=== PATIENT | female | born 1940 | race Caucasian/White ===

== ENCOUNTER → 2023-10-30 07:29 | Outpatient (REF) | payer MEDICARE, BC, SELFPAY | LOC: EMG 07:29 | PROVIDERS: ATTENDING PHYSICIAN Psychiatry & Neurology Neurology | DX: G62.9 Polyneuropathy, unspecified (principal); G56.02 Carpal tunnel syndrome, left upper limb; M54.12 Radiculopathy, cervical region | CPT/HCPCS: 95886; 95909 ==

== ENCOUNTER 2023-11-06 12:15 | Emergency (ER) | payer MEDICARE, BC, SELFPAY ==
[2023-11-06 12:26] VITALS: BP 132/85
[2023-11-06 12:48] LABS: % Basophils 0.6 % (0-2); % Eosinophils 0.2 % (0-6); % Immature Granulocytes 0.4 % (0-0.5); % Lymphocytes 8.5 % (20.5-51.1); % Monocytes 11.9 % (1.7-9.3); % Neutrophils 78.4 % (42.2-75.2); Absolute Basophils 0.1 10^3/uL (0-0.2); Absolute Lymphocytes 0.7 10^3/uL (1.2-3.4); Absolute Neutrophils 6.5 10^3/uL (1.4-6.5); Hematocrit 38.1 % (37.0-47.0); Hemoglobin 13.7 g/dL (12.0-16.0); Mean Corpuscular Hgb 32.6 pg (27.0-31.0); Mean Corpuscular Volume 90.7 fL (81.0-99.0); Nucleated Red Blood Cells % 0 %; Platelet Count 189 10^3/uL (130-400); Red Cell Dist. Width 13.4 % (11.5-14.5); White Blood Cell Count 8.2 10^3/uL (4.8-10.8)
[2023-11-06 13:26] LABS: ALT (SGPT) 25 U/L (0-35); AST (SGOT) 38 U/L (14-36); Albumin 4.3 g/dl (3.5-5.0); Alkaline Phosphatase 52 U/L (38-126); Blood Urea Nitrogen 31 mg/dl (7-17); Calcium 9.3 mg/dl (8.4-10.2); Carbon Dioxide 27 mmol/L (22-30); Chloride 102 mmol/L (98-107); Glucose 117 mg/dl (70-99); Potassium 4.4 mmol/L (3.5-5.1); Sodium 133 mmol/L (135-145); Total Bilirubin 0.9 mg/dl (0.2-1.3); Total Protein 6.9 g/dl (6.3-8.2); eGFR > 60.00
--- NOTE | 2023-11-06 15:36 | ED.GENMED ---
History of Present Illness
General
Chief Complaint: Fatigue
Source: patient
Exam Limitations: none
Time Seen by Provider: 11/06/23 15:15
Travel History
Have you had any contact with someone who has COVID-19?: No
Do you have any symptoms of coronavirus? Fever > 100 degrees, chills, cough, shortness of breath, sore throat, loss of taste or smell, muscle aches, or headache?: Yes
Symptoms:: bodyaches
History of Present Illness
History of Present Illness:
83 year old female presents with generalized weakness and fatigue starting yesterday. She notes a slight cough. No fever. Lives at home by herself. Tested herself at home and was positive for COVID. She denies shortness of breath. No vomiting.
She noted a decreased appetite yesterday. No other complaints at this time
Past History
Past History
ED Past Medical History: HTN and Other (Chronic renal failure, compression fractures, parotid gland cancer, osteoporosis)
ED Past Surgical History: Bowel resection, Gynecological, Orthopedic, Tonsilectomy and Other
Social History
Tobacco: Non-smoker
Alcohol: None
Drug: None
Personal:
Living: alone
Employment: Not employed
Family History
Family History: Other
Phy Exam
Physical Exam
Physical Exam:
General: Well-appearing female no acute respiratory distress
HEENT: Normocephalic atraumatic
Heart: Regular rate and rhythm no murmurs
Lungs: Clear to auscultation bilaterally no wheezing
Abdomen is soft nontender nondistended no guarding or rebound normal bowel
Extremities: No cyanosis or edema
Skin: Warm without rashes
Course
Orders/Labs/Results
Orders:
Orders
11/06/23 12:42
Complete Blood Count/With Diff Urgent
Comprehensive Metabolic Panel Urgent
11/06/23 15:35
Acetaminophen [Tylenol] 650 mg PO NOW STA
Abnormal Lab Results
11/06/23
12:42
MCH 32.6 H pg
(27.0-31.0)
Absolute Lymphs (auto) 0.7 L 10^3/uL
(1.2-3.4)
Absolute Monos (auto) 1.0 H 10^3/uL
(0.1-0.6)
Neutrophils % 78.4 H %
(42.2-75.2)
Lymphocytes % 8.5 L %
(20.5-51.1)
Monocytes % 11.9 H %
(1.7-9.3)
Sodium 133 L mmol/L
(135-145)
BUN 31 H mg/dl
(7-17)
Glucose 117 H mg/dl
(70-99)
AST 38 H U/L
(14-36)
11/06/23 12:42
11/06/23 12:42
Vital Signs
Initial and Last Documented VS:
Initial Vital Signs
Temp Pulse Resp BP Pulse Ox
100.0 F 88 18 132/85 95
11/06/23 12:26 11/06/23 12:11/06/23 12:11/06/23 12:11/06/23 12:26
Last Documented Vital Signs
Temp Pulse Resp BP Pulse Ox
100.0 F 88 18 132/85 95
11/06/23 12:26 11/06/23 12:26 11/06/23 12:11/06/23 12:11/06/23 12:26
MDM/Problems Addressed
Differential Diagnosis Includes:
Fatigue and weakness. Patient tested positive for COVID at home today. She is not hypoxic no respiratory distress. Labs through triage were reviewed and are without significant finding. Temperature up from 100.0 will administer Tylenol.
*Critical Care Note
Total Time (30-74mins, 75-104mins- exclusive of procedures): Not Applicable
Update Note
Update Note:
Patient remains nontoxic no respiratory distress offered Tylenol but she declined. Will discharge patient home with COVID. Return precautions were given.
Upon discharge, patient was ambulating throughout the room by herself and lost balance and fell. States she hit the left side of her face. No loss conscious. She denies any pain. No neck pain. Patient was examined pupils are equal round
reactive to light no facial bone deformity cervical spine tenderness. No complaints from the fall. Stable for discharge
ED Attending Note
-
Portions of this chart may have been created with voice recognition software.� Occasional wrong word or��sound alike� substitutions may have occurred due to the inherent limitations of voice recognition software.
Discharge Plan
Departure
Patient Disposition: Home (Routine Discharge)
Date of Disposition: 11/06/23
Time of Disposition: 16:49
Patient with high blood pressure during this ER visit?: No
Discharge Problem:
COVID-19
Instructions: COVID-19 (DC)
Prescriptions:
No Action
cholecalciferol (vitamin D3) 1,000 UNITS tablet
5,000 units PO BID
Benefiber
1 dose PO TID
Arthro Max Advanced
1 tab PO DAILY
thiamine HCl (vitamin B1) 100 MG tablet
100 mg PO DAILY Qty: 0
docosahexaenoic acid-epa 1 CAP capsule
1 cap PO BID Qty: 0
High Absorption Cq10
200 mg PO DAILY
gabapentin 100 MG capsule
100 mg PO BID Qty: 60 0RF
polyethylene glycol 3350 17 GRAMS powder in packet
17 grams PO TID
flaxseed-omega3,6,9-fatty acid 1 EACH capsule
1 cap PO DAILY
estradiol 1 APPLIC cream
1 applic VAG .2X WEEKLY
cyclobenzaprine 10 MG tablet
5 mg PO TID 0RF
acetaminophen 325 MG tablet
650 mg PO Q4HPRN PRN (Reason: mild pain/LARIOS/temp> 100.4F) 0RF
lidocaine [Aspercreme (lidocaine)] 1 PATCH adhesive patch,medicated
1 patch topical DAILY 0RF
amlodipine 10 MG tablet
10 mg PO DAILY 0RF
docusate sodium 100 MG capsule
100 mg PO BID 0RF
lidocaine 5 % adhesive patch,medicated
1 patch topical DAILY Qty: 15 0RF
Referrals:
Amada Owen MD [Family Provider] -
Activity Restrictions/Additional Instructions:
Stay hydrated. Use Tylenol if needed for fever or aches. Return for worsening symptoms otherwise follow-up with family
Interventions
Interventions:
*ED COVID-19 Vaccine History Last Done: 11/06/23 12:26
[2023-11-06 17:15] VITALS: BP 116/82
== END 2023-11-06 18:31 | disposition home or self-care (01) ==
LOC: EMR 12:15
PROVIDERS: Emergency Medicine; EMERGENCY PHYSICIAN Emergency Medicine; FAMILY PHYSICIAN Student in an Organized Health Care Education/Training Program
DX: U07.1 COVID-19 (principal); I12.9 Hypertensive chronic kidney disease with stage 1 through stage 4 chronic kidney disease, or unspecified chronic kidney disease; N18.9 Chronic kidney disease, unspecified; Z60.2 Problems related to living alone; Z85.818 Personal history of malignant neoplasm of other sites of lip, oral cavity, and pharynx; M81.0 Age-related osteoporosis without current pathological fracture
CPT/HCPCS: 99283; 80053; 85025

== ENCOUNTER → 2023-11-18 13:24 | Outpatient (REF) | payer MEDICARE, BC, SELFPAY | LOC: RAD 13:24 | PROVIDERS: ATTENDING PHYSICIAN Student in an Organized Health Care Education/Training Program | DX: M54.6 Pain in thoracic spine (principal) | CPT/HCPCS: 72072 ==

== ENCOUNTER 2024-02-06 15:46 | Emergency (ER) | payer MEDICARE, BC, SELFPAY ==
[2024-02-06 15:49] VITALS: BP 163/84
--- NOTE | 2024-02-06 16:50 | ED.GENMED ---
History of Present Illness
General
Chief Complaint: Throat Problem
Source: patient
Time Seen by Provider: 02/06/24 16:16
Travel History
Have you had any contact with someone who has COVID-19?: No
Do you have any symptoms of coronavirus? Fever > 100 degrees, chills, cough, shortness of breath, sore throat, loss of taste or smell, muscle aches, or headache?: No
History of Present Illness
History of Present Illness:
83-year-old female presents to the emergency room complaining of head injury. Patient states that she was rushing to get to a appointment this morning with her ears nose and throat specialist at the hospital of the [facility]. She
fell backwards and struck the back of her head. She had some bleeding but no loss of consciousness. She continued to rushing get ready for her appointment and did see her doctor at [place]. The reason for her visit there was that she felt a lump on
the left side of her neck up by her jaw. 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 Her surgeon told her he has a low suspicion for recurrence but recommended she get a CT of her neck to be sure. Pt has also been having some
pain with swallowing on the left.
Past History
Past History
ED Past Medical History: HTN and Other (Chronic renal failure, compression fractures, parotid gland cancer, osteoporosis)
ED Past Surgical History: Bowel resection, Gynecological, Orthopedic, Tonsilectomy and Other
Social History
Tobacco: Non-smoker
Alcohol: None
Drug: None
Personal:
Living: alone
Employment: Not employed
Family History
Family History: Other
Phy Exam
Physical Exam
Physical Exam:
General: Awake, Alert, Oriented X3. No acute distress.
Vitals: unremarkable
Head: Hematoma occipital region with a central area of abrasion or small laceration without significant gaping
Eyes: Pupils equal, EOMI
Throat: Airway intact, no exudates
Neck: Trachea midline, mild tenderness diffusely. No lymphadenopathy noted. Patient indicates an area where she is concerned about a lump. Palpating this area reveals what appears to be a bony prominence but no clear discrete mass
Lungs: Clear and equal b/l
Heart: Regular rate, no murmurs
Abd: Soft, Nontender, No pulsatile mass
Neuro: Nonfocal
Skin: Warm, dry, no rash
Extremities: pulses equal b/l, no edema
Course
Orders/Labs/Results
Orders:
Orders
02/06/24 16:50
CT Head W/o Iv Contrast Urgent
Comment:
Reason For Exam: fall, head injury
CT Neck With Iv Contrast Urgent
Comment:
Reason For Exam: fall, nck pain, lump lt angle mandible, hx salv ca
02/06/24 17:00
Basic Metabolic Panel Urgent
Complete Blood Count/With Diff Urgent
Abnormal Lab Results
02/06/24
17:00
RBC 4.02 L 10^6/uL
(4.20-5.40)
MCH 33.1 H pg
(27.0-31.0)
Abs Immat Gran (auto) 0.1 H 10^3/uL
(0-0.05)
Absolute Lymphs (auto) 1.1 L 10^3/uL
(1.2-3.4)
Absolute Monos (auto) 0.7 H 10^3/uL
(0.1-0.6)
Immature Gran % 0.6 H %
(0-0.5)
Neutrophils % 75.7 H %
(42.2-75.2)
Lymphocytes % 13.2 L %
(20.5-51.1)
BUN 31 H mg/dl
(7-17)
Glucose 112 H mg/dl
(70-99)
02/06/24 17:00
02/06/24 17:00
Vital Signs
Initial and Last Documented VS:
Initial Vital Signs
Temp Pulse Resp BP Pulse Ox
98.2 F 67 16 163/84 98
02/06/24 15:49 02/06/24 15:49 02/06/24 15:49 02/06/24 15:49 02/06/24 15:49
Last Documented Vital Signs
Temp Pulse Resp BP Pulse Ox
98.2 F 64 18 144/74 98
02/06/24 15:49 02/06/24 19:19 02/06/24 19:19 02/06/24 19:19 02/06/24 19:19
MDM/Problems Addressed
Differential Diagnosis Includes:
Subdural, subarachnoid, scalp contusion, cervical spine injury, tumor recurrence
MDM/Problems Addressed:
Imaging showed no acute traumatic injury nor any recurrence in the area of concern. She was noted to have calcification of the carotid bulb. Patient informed of this and instructed to follow-up with her primary care provider for this. Patient
stable for discharge home.
*Radiology
Radiology exam reviewed: radiology read reviewed
*Critical Care Note
Total Time (30-74mins, 75-104mins- exclusive of procedures): Not Applicable
Patient Management
Social determinants of health affecting care: Strong social support
ED Attending Note
-
Portions of this chart may have been created with voice recognition software.� Occasional wrong word or��sound alike� substitutions may have occurred due to the inherent limitations of voice recognition software.
Discharge Plan
Departure
Patient Disposition: Home (Routine Discharge)
Date of Disposition: 02/06/24
Time of Disposition: 18:37
Patient with high blood pressure during this ER visit?: Yes
Condition: Good
Discharge Problem:
Head injury, Cervical strain
Instructions: Head injury in adults, BLOOD PRESSURE
Prescriptions:
No Action
cholecalciferol (vitamin D3) 1,000 UNITS tablet
5,000 units PO BID
Benefiber
1 dose PO TID
Arthro Max Advanced
1 tab PO DAILY
thiamine HCl (vitamin B1) 100 MG tablet
100 mg PO DAILY Qty: 0
docosahexaenoic acid-epa 1 CAP capsule
1 cap PO BID Qty: 0
High Absorption Cq10
200 mg PO DAILY
gabapentin 100 MG capsule
100 mg PO BID Qty: 60 0RF
polyethylene glycol 3350 17 GRAMS powder in packet
17 grams PO TID
flaxseed-omega3,6,9-fatty acid 1 EACH capsule
1 cap PO DAILY
estradiol 1 APPLIC cream
1 applic VAG .2X WEEKLY
cyclobenzaprine 10 MG tablet
5 mg PO TID 0RF
acetaminophen 325 MG tablet
650 mg PO Q4HPRN PRN (Reason: mild pain/LARIOS/temp> 100.4F) 0RF
lidocaine [Aspercreme (lidocaine)] 1 PATCH adhesive patch,medicated
1 patch topical DAILY 0RF
amlodipine 10 MG tablet
10 mg PO DAILY 0RF
docusate sodium 100 MG capsule
100 mg PO BID 0RF
lidocaine 5 % adhesive patch,medicated
1 patch topical DAILY Qty: 15 0RF
Referrals:
UNKNOWN - PT DOES,NOT KNOW [Unknown Provider] -
Activity Restrictions/Additional Instructions:
Your CAT scan shows there is no significant injury to your head or neck. There is no evidence of abnormal lymph nodes or a mass. The area of concern is close to your carotid artery which does have some calcification. This is something your family
doctor can follow-up on.
Interventions
Interventions:
*Risk Screen - Suicide Last Done: 02/06/24 15:49
*General Assessment Last Done: 02/06/24 15:49
*Neglect/Abuse Screening Last Done: 02/06/24 15:49
ED- Fall Risk Assessment Last Done: 02/06/24 19:20
*ED COVID-19 Vaccine History Last Done: 02/06/24 19:20
*Nursing Disposition Last Done: 02/06/24 19:20
ED-EENT Assessment Last Done: 02/06/24 19:19
ED- Pulmonary Assessment Last Done: 02/06/24 19:19
Discharge Date and Time
Discharge Date/Time: 02/06/24 19:20
Print Language: SENEGALESE
[2024-02-06 17:10] LABS: % Basophils 0.5 % (0-2); % Eosinophils 2.1 % (0-6); % Immature Granulocytes 0.6 % (0-0.5); % Lymphocytes 13.2 % (20.5-51.1); % Monocytes 7.9 % (1.7-9.3); % Neutrophils 75.7 % (42.2-75.2); Absolute Eosinophils 0.2 10^3/uL (0-0.7); Absolute Immature Granulocytes 0.1 10^3/uL (0-0.05); Absolute Lymphocytes 1.1 10^3/uL (1.2-3.4); Absolute Monocytes 0.7 10^3/uL (0.1-0.6); Absolute Neutrophils 6.5 10^3/uL (1.4-6.5); Hematocrit 38.9 % (37.0-47.0); Hemoglobin 13.3 g/dL (12.0-16.0); Mean Corp Hgb Conc. 34.2 g/dL (33.0-37.0); Mean Corpuscular Hgb 33.1 pg (27.0-31.0); Mean Corpuscular Volume 96.8 fL (81.0-99.0); Mean Platelet Volume 9.1 fL (7.4-10.4); Nucleated Red Blood Cells % 0 %; Platelet Count 206 10^3/uL (130-400); Red Blood Cell Count 4.02 10^6/uL (4.20-5.40); Red Cell Dist. Width 13.7 % (11.5-14.5); White Blood Cell Count 8.6 10^3/uL (4.8-10.8)
[2024-02-06 17:32] LABS: Blood Urea Nitrogen 31 mg/dl (7-17); Calcium 10.1 mg/dl (8.4-10.2); Carbon Dioxide 27 mmol/L (22-30); Chloride 104 mmol/L (98-107); Glucose 112 mg/dl (70-99); Potassium 4.1 mmol/L (3.5-5.1); Sodium 138 mmol/L (135-145); eGFR 55.21
[2024-02-06 19:19] VITALS: BP 144/74
== END 2024-02-06 19:20 | disposition home or self-care (01) ==
LOC: EMR 15:46
PROVIDERS: EMERGENCY PHYSICIAN Emergency Medicine; FAMILY PHYSICIAN Student in an Organized Health Care Education/Training Program
DX: S09.90XA Unspecified injury of head, initial encounter (principal); S16.1XXA Strain of muscle, fascia and tendon at neck level, initial encounter; S00.03XA Contusion of scalp, initial encounter; S00.01XA Abrasion of scalp, initial encounter; R22.1 Localized swelling, mass and lump, neck; W19.XXXA Unspecified fall, initial encounter; I12.9 Hypertensive chronic kidney disease with stage 1 through stage 4 chronic kidney disease, or unspecified chronic kidney disease; N18.9 Chronic kidney disease, unspecified; M81.0 Age-related osteoporosis without current pathological fracture; Z85.818 Personal history of malignant neoplasm of other sites of lip, oral cavity, and pharynx
CPT/HCPCS: 99285; 70450; 70491; 80048; 85025; Q9967

== ENCOUNTER → 2024-02-28 09:52 | Outpatient (REF) | payer MEDICARE, BC, SELFPAY | LOC: WDC 09:52 | PROVIDERS: ATTENDING PHYSICIAN Physician Assistant Medical | DX: N63.20 Unspecified lump in the left breast, unspecified quadrant (principal); N63.21 Unspecified lump in the left breast, upper outer quadrant | CPT/HCPCS: 76642; 77062; 77066 ==

== ENCOUNTER 2024-06-07 11:16 | Emergency (ER) | payer MEDICARE, BC, SELFPAY ==
[2024-06-07 11:19] VITALS: BP 117/85; BMI 20.6
[2024-06-07 12:00] VITALS: BP 106/57
--- NOTE | 2024-06-07 12:10 | ED.GENMED ---
History of Present Illness
General
Chief Complaint: Musculo-Skeletal Complaint
Source: patient
Time Seen by Provider: 06/07/24 11:45
History of Present Illness
History of Present Illness:
84yoF with a history of hypertension, osteoporosis, and prior lumbar compression fractures presenting via EMS for evaluation of right lower back pain. Patient bent down to take her shoes off last night when she started to experience an extreme pain
in her right lower posterior ribcage. Pain felt like her vertebrae were 'crumbling.' Patient had a leftover CBD which she used today with some improvement. Patient is worried due to her history of osteoporosis. She believes that she may have
fractured something. She denies any weakness, paresthesias, or pain in the lower extremities. No fevers, shortness of breath, abdominal pain, incontinence, saddle anesthesia. She ambulates with a cane.
Past History
Past History
ED Past Medical History: HTN and Other (Chronic renal failure, compression fractures, parotid gland cancer, osteoporosis)
ED Past Surgical History: Bowel resection, Gynecological, Orthopedic, Tonsilectomy and Other
Social History
Tobacco: Non-smoker
Alcohol: None
Drug: None
Personal:
Living: alone
Employment: Not employed
Family History
Family History: Other
Phy Exam
General Physical Exam
General Presentation: well appearing and no apparent distress
General age: appears stated age
General Skin: warm and dry
General Habitus: normal and elderly
General Mental: alert
ENT Exam
ENT Exam: normocephalic
Pulmonary Exam
Pulmonary Exam: lungs clear, no respiratory distress, no crackles and no wheezing
Gastrointestinal Exam
Gastrointestinal Exam: non tender, soft and non distended
[place] Coma Scale
Eye Opening: Spontaneous
Verbal Response: Oriented
Motor Response: Obeys Commands
GCS Total Score: 15
Musculoskeletal Exam
Musculoskeletal Exam: other (+Tenderness along lower R posterior ribcage. No crepitus or skin changes. No midline lumbar spine tenderness. )
Skin Exam
Skin Exam: normal color and warm/dry
Psychiatric Exam
Psychiatric Exam: normal mood/affect
Course
Orders/Labs/Results
Orders:
Orders
06/07/24 12:07
CT Chest W/o Iv Contrast Urgent
Comment:
Reason For Exam: R posterior lower rib pain
CT Lumbar Spine W/o Iv Contras Urgent
Comment:
Reason For Exam: Back pain
Acetaminophen [Tylenol] 1,000 mg PO NOW STA
06/07/24 12:15
Lidocaine [Lidocaine 4% Patch] 1 patch TOPICAL DAILY
Apply Lidocaine patch(s) to:: R lower ribcage
Vital Signs
Initial and Last Documented VS:
Initial Vital Signs
Temp Pulse Resp BP Pulse Ox
98.7 F 69 14 117/85 98
06/07/24 11:19 06/07/24 11:19 06/07/24 11:19 06/07/24 11:19 06/07/24 11:19
Last Documented Vital Signs
Temp Pulse Resp BP Pulse Ox
98.7 F 83 14 117/68 99
06/07/24 11:19 06/07/24 17:11 06/07/24 17:11 06/07/24 13:10 06/07/24 17:11
MDM/Problems Addressed
Differential Diagnosis Includes:
84yoF here with R lower rib/back pain after taking off her shoes. No true fall. Hx of osteoporosis and compression fractures. No red flags in history including no saddle anesthesia, incontinence, fevers. VSS. She is non-toxic appearing. There is
tenderness along the R posterior ribcage on exam. Bilateral breath sounds intact. Differential diagnosis includes but is not limited to: fracture, strain, rib contusion
Initial ED plan: Will check CT chest and lumbar spine. Tylenol and lidocaine patch for pain.
*Critical Care Note
Total Time (30-74mins, 75-104mins- exclusive of procedures): Not Applicable
Update Note
Update Note:
Imaging negative for fractures. Lumbar spine CT is stable from 2022. Patient is sleeping on reassessment. No indication for admission. Supportive care discussed. Advised f/u with PCP. ED return precautions discussed. She is stable for discharge back
to her independent living facility.
ED Attending Note
-
Portions of this chart may have been created with voice recognition software.� Occasional wrong word or��sound alike� substitutions may have occurred due to the inherent limitations of voice recognition software.
Discharge Plan
Departure
Patient Disposition: Home (Routine Discharge)
Date of Disposition: 06/07/24
Time of Disposition: 14:07
Patient with high blood pressure during this ER visit?: No
Discharge Problem:
Acute right-sided low back pain
Instructions: Muscle and Bone Pain (DC)
Prescriptions:
No Action
cholecalciferol (vitamin D3) 1,000 UNITS tablet
5,000 units PO BID
Benefiber
1 dose PO TID
Arthro Max Advanced
1 tab PO DAILY
thiamine HCl (vitamin B1) 100 MG tablet
100 mg PO DAILY Qty: 0
docosahexaenoic acid-epa 1 CAP capsule
1 cap PO BID Qty: 0
High Absorption Cq10
200 mg PO DAILY
gabapentin 100 MG capsule
100 mg PO BID Qty: 60 0RF
polyethylene glycol 3350 17 GRAMS powder in packet
17 grams PO TID
flaxseed-omega3,6,9-fatty acid 1 EACH capsule
1 cap PO DAILY
estradiol 1 APPLIC cream
1 applic VAG .2X WEEKLY
cyclobenzaprine 10 MG tablet
5 mg PO TID 0RF
acetaminophen 325 MG tablet
650 mg PO Q4HPRN PRN (Reason: mild pain/LARIOS/temp> 100.4F) 0RF
lidocaine [Aspercreme (lidocaine)] 1 PATCH adhesive patch,medicated
1 patch topical DAILY 0RF
amlodipine 10 MG tablet
10 mg PO DAILY 0RF
docusate sodium 100 MG capsule
100 mg PO BID 0RF
lidocaine 5 % adhesive patch,medicated
1 patch topical DAILY Qty: 15 0RF
Referrals:
Amada Owen MD [Family Provider] -
Activity Restrictions/Additional Instructions:
Apply heat to affected area. Take Tylenol 650mg every 6 hours as needed for pain.
Please follow-up with your family doctor. Return to the ER with any new or worsening symptoms.
Interventions
Interventions:
*Risk Screen - Suicide Last Done: 06/07/24 11:19
*General Assessment Last Done: 06/07/24 11:19
*Neglect/Abuse Screening Last Done: 06/07/24 11:19
*ED COVID-19 Vaccine History Last Done: 06/07/24 11:19
ED-Musculoskeletal Assessment Last Done: 06/07/24 11:34
Discharge Date and Time
Discharge Date/Time: 06/07/24 17:23
Print Language: L[place]
[2024-06-07] MEDS: TYLENOL 1000 MG PO (12:43)
[2024-06-07] MEDS: LIDOCAINE 4% PATCH 1 PATCH TOPICAL (12:43)
[2024-06-07 13:10] VITALS: BP 117/68
== END 2024-06-07 17:23 | disposition home or self-care (01) ==
LOC: EMR 11:16
PROVIDERS: EMERGENCY PHYSICIAN Emergency Medicine; FAMILY PHYSICIAN Student in an Organized Health Care Education/Training Program
DX: M54.50 Low back pain, unspecified (principal); R07.89 Other chest pain; M81.0 Age-related osteoporosis without current pathological fracture; M48.56XA Collapsed vertebra, not elsewhere classified, lumbar region, initial encounter for fracture; I12.9 Hypertensive chronic kidney disease with stage 1 through stage 4 chronic kidney disease, or unspecified chronic kidney disease; N18.9 Chronic kidney disease, unspecified; Z85.818 Personal history of malignant neoplasm of other sites of lip, oral cavity, and pharynx; Z98.0 Intestinal bypass and anastomosis status; Z88.1 Allergy status to other antibiotic agents; Z88.2 Allergy status to sulfonamides; Z88.8 Allergy status to other drugs, medicaments and biological substances; Z91.048 Other nonmedicinal substance allergy status
CPT/HCPCS: 99284; 71250; 72131

== ENCOUNTER → 2024-07-09 10:39 | Outpatient (REF) | payer MEDICARE, BC, SELFPAY | LOC: HWRAD 10:39 | PROVIDERS: ATTENDING PHYSICIAN Internal Medicine Endocrinology, Diabetes & Metabolism; FAMILY PHYSICIAN Student in an Organized Health Care Education/Training Program; REFERRING PHYSICIAN Internal Medicine | DX: M81.0 Age-related osteoporosis without current pathological fracture (principal) | CPT/HCPCS: 77080 ==

== ENCOUNTER → 2024-09-28 09:28 | Outpatient (REF) | payer MEDICARE, BC, SELFPAY | LOC: HWRCS 09:28 | PROVIDERS: ATTENDING PHYSICIAN Internal Medicine; FAMILY PHYSICIAN Student in an Organized Health Care Education/Training Program | DX: I48.91 Unspecified atrial fibrillation (principal) | CPT/HCPCS: 93306 ==

== ENCOUNTER → 2024-11-06 09:15 | Outpatient (REF) | payer MEDICARE, BC, SELFPAY | LOC: DHSLP 09:15 | PROVIDERS: ATTENDING PHYSICIAN Internal Medicine Critical Care Medicine; FAMILY PHYSICIAN Student in an Organized Health Care Education/Training Program | DX: G47.33 Obstructive sleep apnea (adult) (pediatric) (principal) | CPT/HCPCS: 95811 ==

== ENCOUNTER 2024-12-04 15:35 | Emergency (ER) | payer MEDICARE, BC, SELFPAY ==
[2024-12-04 15:40] VITALS: BP 102/59
[2024-12-04 16:07] LABS: % Basophils 0.6 % (0-2); % Immature Granulocytes 0.4 % (0-0.5); % Lymphocytes 11.2 % (20.5-51.1); % Monocytes 8.5 % (1.7-9.3); % Neutrophils 75.3 % (42.2-75.2); Absolute Basophils 0.1 10^3/uL (0-0.2); Absolute Eosinophils 0.4 10^3/uL (0-0.7); Absolute Lymphocytes 1.2 10^3/uL (1.2-3.4); Absolute Monocytes 0.9 10^3/uL (0.1-0.6); Absolute Neutrophils 8.1 10^3/uL (1.4-6.5); Hematocrit 36.4 % (37.0-47.0); Hemoglobin 12.8 g/dL (12.0-16.0); Mean Corp Hgb Conc. 35.2 g/dL (33.0-37.0); Mean Corpuscular Hgb 31.8 pg (27.0-31.0); Mean Corpuscular Volume 90.5 fL (81.0-99.0); Mean Platelet Volume 8.6 fL (7.4-10.4); Nucleated Red Blood Cells % 0 %; Platelet Count 253 10^3/uL (130-400); Red Blood Cell Count 4.02 10^6/uL (4.20-5.40); White Blood Cell Count 10.7 10^3/uL (4.8-10.8)
[2024-12-04 16:25] LABS: ALT (SGPT) 23 U/L (0-35); AST (SGOT) 25 U/L (14-36); Albumin 4.3 g/dl (3.5-5.0); Alkaline Phosphatase 52 U/L (38-126); Blood Urea Nitrogen 37 mg/dl (7-17); Calcium 10.2 mg/dl (8.4-10.2); Carbon Dioxide 29 mmol/L (22-30); Chloride 95 mmol/L (98-107); Glucose 129 mg/dl (70-99); Potassium 4.5 mmol/L (3.5-5.1); Sodium 131 mmol/L (135-145); Total Bilirubin 0.5 mg/dl (0.2-1.3); Total Protein 6.5 g/dl (6.3-8.2); eGFR 54.87
[2024-12-04 18:16] VITALS: BP 114/103
[2024-12-04 18:23] VITALS: BP 114/103
--- NOTE | 2024-12-04 18:48 | ED.GENMED ---
History of Present Illness
General
Chief Complaint: Fall
Source: patient
Time Seen by Provider: 12/04/24 18:31
History of Present Illness
History of Present Illness:
84-year-old female presents to the emergency room for evaluation after having some difficulty ambulating today. Patient was walking with her rollator outside and was observed having difficulty walking. She was told to look at her right leg was
taking smaller steps than her left. She had 1 fall without injury. Patient was helped up after the fall back to her independent living apartment. She was able to ambulate normally at that time. Patient notes she has been having labile blood
pressures over the past several weeks. She denies headache, chest pain, shortness of breath or abdominal pain.
Past History
Past History
ED Past Medical History: HTN and Other (Chronic renal failure, compression fractures, parotid gland cancer, osteoporosis)
ED Past Surgical History: Bowel resection, Gynecological, Orthopedic, Tonsilectomy and Other
Social History
Tobacco: Non-smoker
Alcohol: None
Drug: None
Personal:
Living: alone
Employment: Not employed
Family History
Family History: Other
Phy Exam
Physical Exam
Physical Exam:
General: Awake, Alert, Oriented X3. No acute distress, appears stated age and very thin
Vitals: unremarkable
Head: Atraumatic
Eyes: Pupils equal, EOMI
Throat: Airway intact, no exudates, dry mucosa
Neck: Trachea midline
Lungs: Clear and equal b/l
Heart: Regular rate, no murmurs
Abd: Soft, Nontender, No pulsatile mass
Neuro: Cranial nerves intact, muscle strength equal bilaterally, cerebellar exam normal
Skin: Warm, dry, no rash
Extremities: pulses equal b/l, no edema
Course
Orders/Labs/Results
Orders:
Orders
12/04/24 15:49
Complete Blood Count/With Diff Urgent
Comprehensive Metabolic Panel Urgent
12/04/24 18:47
0.9% Sodium Chloride 500 ml [Nss] 500 ml IV BOLUS
12/04/24 18:50
CT Head W/o Iv Contrast Urgent
Comment:
Reason For Exam: fall, right leg weakness
Abnormal Lab Results
12/04/24
15:49
RBC 4.02 L 10^6/uL
(4.20-5.40)
Hct 36.4 L %
(37.0-47.0)
MCH 31.8 H pg
(27.0-31.0)
Absolute Neuts (auto) 8.1 H 10^3/uL
(1.4-6.5)
Absolute Monos (auto) 0.9 H 10^3/uL
(0.1-0.6)
Neutrophils % 75.3 H %
(42.2-75.2)
Lymphocytes % 11.2 L %
(20.5-51.1)
Sodium 131 L mmol/L
(135-145)
Chloride 95 L mmol/L
(98-107)
BUN 37 H mg/dl
(7-17)
Glucose 129 H mg/dl
(70-99)
12/04/24 15:49
12/04/24 15:49
Vital Signs
Initial and Last Documented VS:
Initial Vital Signs
Temp Pulse Resp BP Pulse Ox
98.3 F 76 16 102/59 97
12/04/24 15:40 12/04/24 15:40 12/04/24 15:40 12/04/24 15:40 12/04/24 15:40
Last Documented Vital Signs
Temp Pulse Resp BP Pulse Ox
98.3 F 75 10 135/84 100
12/04/24 15:40 12/04/24 19:00 12/04/24 19:00 12/04/24 19:00 12/04/24 19:00
MDM/Problems Addressed
Differential Diagnosis Includes:
Orthostatic hypotension, TIA, spinal stenosis
MDM/Problems Addressed:
Patient presents after an episode where she was having difficulty walking. Unclear exactly what that episode was. She has a nonfocal neurologic exam here. She is quite vigorous, ambulating about the department with her walker. Given her previous
compression fracture of T12 and degenerative changes of her spine it is likely this was more of a musculoskeletal type issue. TIA is possible but with a normal neurologic exam at this time I do not believe the patient requires hospitalization for
further evaluation of this. She can follow-up with her primary care doctor. Patient also has been having episodes of labile blood pressure. She may have had an episode of relative hypotension. She is dry based upon her BUN and creatinine. She
does feel better after IV fluid.
*Radiology
Radiology exam reviewed: radiology read reviewed
*Pulse Oximetry
Patient hypoxic: no
*Critical Care Note
Total Time (30-74mins, 75-104mins- exclusive of procedures): Not Applicable
ED Attending Note
-
Portions of this chart may have been created with voice recognition software.� Occasional wrong word or��sound alike� substitutions may have occurred due to the inherent limitations of voice recognition software.
Discharge Plan
Departure
Patient Disposition: Home (Routine Discharge)
Date of Disposition: 12/04/24
Time of Disposition: 21:14
Patient with high blood pressure during this ER visit?: No
Condition: Good
Discharge Problem:
Fall
Instructions: Contusion (DC), Preventing falls in adults
Prescriptions:
No Action
cholecalciferol (vitamin D3) 1,000 UNITS tablet
5,000 units PO BID
Benefiber
1 dose PO TID
Arthro Max Advanced
1 tab PO DAILY
thiamine HCl (vitamin B1) 100 MG tablet
100 mg PO DAILY Qty: 0
docosahexaenoic acid-epa 1 CAP capsule
1 cap PO BID Qty: 0
High Absorption Cq10
200 mg PO DAILY
gabapentin 100 MG capsule
100 mg PO BID Qty: 60 0RF
polyethylene glycol 3350 17 GRAMS powder in packet
17 grams PO TID
flaxseed-omega3,6,9-fatty acid 1 EACH capsule
1 cap PO DAILY
estradiol 1 APPLIC cream
1 applic VAG .2X WEEKLY
cyclobenzaprine 10 MG tablet
5 mg PO TID 0RF
acetaminophen 325 MG tablet
650 mg PO Q4HPRN PRN (Reason: mild pain/LARIOS/temp> 100.4F) 0RF
lidocaine [Aspercreme (lidocaine)] 1 PATCH adhesive patch,medicated
1 patch topical DAILY 0RF
amlodipine 10 MG tablet
10 mg PO DAILY 0RF
docusate sodium 100 MG capsule
100 mg PO BID 0RF
lidocaine 5 % adhesive patch,medicated
1 patch topical DAILY Qty: 15 0RF
Referrals:
Amada Owen MD [Family Provider] -
Interventions
Interventions:
*Risk Screen - Suicide Last Done: 12/04/24 15:43
*General Assessment Last Done: 12/04/24 18:53
*Neglect/Abuse Screening Last Done: 12/04/24 15:43
*ED- Fall Risk Assessment Last Done: 12/04/24 18:53
*ED COVID-19 Vaccine History Last Done: 12/04/24 18:53
*Nursing Disposition Last Done: 12/04/24 22:32
ED-Musculoskeletal Assessment Last Done: 12/04/24 18:53
ED- Neurological Assessment Last Done: 12/04/24 18:53
ED-Skin Assessment Last Done: 12/04/24 18:53
Discharge Date and Time
Discharge Date/Time: 12/04/24 22:25
Print Language: [place]
[2024-12-04 18:59] VITALS: BMI 22.8
[2024-12-04 19:00] VITALS: BP 135/84
[2024-12-04] MEDS: NSS 500 IV (19:01)
== END 2024-12-04 22:25 | disposition home or self-care (01) ==
LOC: EMR 15:35
PROVIDERS: Student in an Organized Health Care Education/Training Program; EMERGENCY PHYSICIAN Emergency Medicine; FAMILY PHYSICIAN Student in an Organized Health Care Education/Training Program
DX: R53.1 Weakness (principal); R26.2 Difficulty in walking, not elsewhere classified; W19.XXXA Unspecified fall, initial encounter; I12.9 Hypertensive chronic kidney disease with stage 1 through stage 4 chronic kidney disease, or unspecified chronic kidney disease; N18.9 Chronic kidney disease, unspecified
CPT/HCPCS: 99284; 96360; 70450; 80053; 85025

== ENCOUNTER → 2024-12-16 11:59 | Outpatient (REF) | payer MEDICARE, BC, SELFPAY ==
[2024-12-16 13:20] LABS: Mean Corp Hgb Conc. 34.2 g/dL (33.0-37.0); Mean Corpuscular Hgb 32.7 pg (27.0-31.0); Mean Corpuscular Volume 95.7 fL (81.0-99.0); Mean Platelet Volume 8.7 fL (7.4-10.4); Platelet Count 268 10^3/uL (130-400); Red Blood Cell Count 3.97 10^6/uL (4.20-5.40); Red Cell Dist. Width 13.2 % (11.5-14.5); White Blood Cell Count 9.9 10^3/uL (4.8-10.8)
[2024-12-16 13:21] LABS: Osmolality Urine 483 mOsm/kg (300-900)
[2024-12-16 13:26] LABS: Osmolality Serum 283 mOsm/kg (275-300)
[2024-12-16 13:33] LABS: ALT (SGPT) 19 U/L (0-35); AST (SGOT) 20 U/L (14-36); Albumin 4.1 g/dl (3.5-5.0); Alkaline Phosphatase 62 U/L (38-126); Blood Urea Nitrogen 28 mg/dl (7-17); Calcium 10.3 mg/dl (8.4-10.2); Carbon Dioxide 31 mmol/L (22-30); Chloride 96 mmol/L (98-107); Glucose 98 mg/dl (70-99); Phosphorus 3.9 mg/dl (2.5-4.5); Potassium 4.6 mmol/L (3.5-5.1); Sodium 131 mmol/L (135-145); Total Bilirubin 0.6 mg/dl (0.2-1.3); Total Protein 6.4 g/dl (6.3-8.2); eGFR 54.87
[2024-12-16 13:38] LABS: Urine Sodium 36 mmol/L (30-90)
== END ==
LOC: REG 11:59
PROVIDERS: ATTENDING PHYSICIAN Nurse Practitioner; FAMILY PHYSICIAN Student in an Organized Health Care Education/Training Program
DX: E87.1 Hypo-osmolality and hyponatremia (principal); N39.41 Urge incontinence; R15.9 Full incontinence of feces; I10 Essential (primary) hypertension
CPT/HCPCS: 36415; 80053; 82570; 83930; 83935; 84100; 84300; 85027; 87086

== ENCOUNTER → 2024-12-24 17:21 | Outpatient (REF) | payer MEDICARE, BC, SELFPAY ==
[2024-12-24 18:02] LABS: Albumin 4.9 g/dl (3.5-5.0); Blood Urea Nitrogen 27 mg/dl (7-17); Calcium 10.4 mg/dl (8.4-10.2); Carbon Dioxide 27 mmol/L (22-30); Chloride 97 mmol/L (98-107); Glucose 113 mg/dl (70-99); Phosphorus 3.9 mg/dl (2.5-4.5); Potassium 4.7 mmol/L (3.5-5.1); Sodium 133 mmol/L (135-145); eGFR 54.87
== END ==
LOC: REG 17:21
PROVIDERS: ATTENDING PHYSICIAN Student in an Organized Health Care Education/Training Program
DX: E87.1 Hypo-osmolality and hyponatremia (principal)
CPT/HCPCS: 36415; 80069

== ENCOUNTER 2025-03-08 06:28 | Day surgery (SDC) | payer MEDICARE, BC, SELFPAY ==
[2025-03-08] VITALS (8 sets, daily range): BP systolic 152–171; BP diastolic 75–86; BMI 22.6
[2025-03-08] MEDS: NORMOSOL-R/PLASMALYTE-A 1000 IV (07:45)
[2025-03-08] MEDS: VANCOCIN 200 IV (08:04)
[2025-03-08] MEDS: ZOFRAN 4 MG IV (10:46)
== END 2025-03-08 11:55 | disposition home or self-care (01) ==
LOC: SDS 06:28
PROVIDERS: ATTENDING PHYSICIAN Urology
DX: N39.41 Urge incontinence (principal); R15.9 Full incontinence of feces
CPT/HCPCS: 64590; 64561; 72170; 76000; C1767; C1778; C1787; L8681

== ENCOUNTER 2025-03-16 09:43 | Emergency (ER) | payer MEDICARE, BC, SELFPAY ==
[2025-03-16 09:46] VITALS: BP 168/98
[2025-03-16 11:54] VITALS: BMI 20.6
[2025-03-16 12:34] VITALS: BP 154/86
--- NOTE | 2025-03-16 12:55 | ED.GENMED ---
History of Present Illness
General
Chief Complaint: Fall
Time Seen by Provider: 03/16/25 11:46
History of Present Illness
History of Present Illness:
84-year-old female with reported history of balance issues presenting after a fall. Patient reports prior to arrival she was going to a doctor's appointment and fell getting out of her car. She did strike her head without loss of consciousness.
She denies prodromal dizziness or lightheadedness. She arrives with bandage head with reported pain in the back of her head. Patient also arrives in a cervical collar, notes generalized discomfort to the neck. Denies any additional injuries from
the fall. Denies additional acute medical complaints.
Past History
Past History
ED Past Medical History: HTN and Other (Chronic renal failure, compression fractures, parotid gland cancer, osteoporosis)
ED Past Surgical History: Bowel resection, Gynecological, Orthopedic, Tonsilectomy and Other
Social History
Tobacco: Non-smoker
Alcohol: None
Drug: None
Personal:
Living: alone
Employment: Not employed
Family History
Family History: Other
Phy Exam
Physical Exam
Physical Exam:
General: Well-appearing, no clinical signs of dehydration, nontoxic and in no acute distress
HEENT: protecting airway
Head: Small subcutaneous laceration to the posterior scalp with hematoma
Neck: appears supple
CV: Normal heart rate
Resp: No accessory muscle use, no increased work of breathing
Abd: No distention
Extremities: No deformities, no swelling
Neuro: alert, no focal neurologic deficit
: deferred
Rectal: deferred
Psych: Normal affect
Skin: Intact
Course
Orders/Labs/Results
Orders:
Orders
03/16/25 09:48
CT Cervical Spine W/o Iv Contr Urgent
Comment:
Reason For Exam: fall with head strike, neck pain
CT Head W/o Iv Contrast Urgent
Comment:
Reason For Exam: fall with head strike, neck pain
03/16/25 12:54
Tetanus/Diphth/Acelpertussis [Adacel] 0.5 ml IM .ONCE ONE
Vital Signs
Initial and Last Documented VS:
Initial Vital Signs
Temp Pulse Resp BP Pulse Ox
97.8 F 92 17 168/98 97
03/16/25 09:46 03/16/25 09:46 03/16/25 09:46 03/16/25 09:46 03/16/25 09:46
Last Documented Vital Signs
Temp Pulse Resp BP Pulse Ox
97.8 F 84 17 154/86 98
03/16/25 09:46 03/16/25 12:34 03/16/25 09:46 03/16/25 12:34 03/16/25 12:55
Procedures
Laceration Closure
Scalp:
Status of Wound: clean
Size of Wound in cm: 2
Preparation: cleaned with saline
Type of Closure: single layer closure
Skin Closure Material: skin monika
Number of sutures: 2
MDM/Problems Addressed
MDM/Problems Addressed:
84-year-old female with history of reported chronic balance issues presenting for fall. Vital signs on arrival significant for mild hypertension.
On exam, patient is resting comfortably, no acute distress or discomfort. Patient arrives with her head bandaged, awake and alert. Cervical collar cleared, no midline tenderness. Patient denies any prodromal symptoms to the fall, notes that it
was mechanical in etiology. Patient sent for CT brain and C-spine imaging prior to my assessment, which is reasonable given evidence of head trauma and age. Tetanus status unknown, will update. Wound was appropriately irrigated and repaired with
2 monika. Please see procedure note.
13:00 - CT imaging is negative. At this time feel stable for discharge with outpatient supportive therapy and outpatient primary care follow-up. Return precautions discussed and patient verbalized understanding.
*Pulse Oximetry
SaO2: 98
Oxygen Mode of Delivery: Room air
Patient hypoxic: no
*Critical Care Note
Total Time (30-74mins, 75-104mins- exclusive of procedures): Not Applicable
ED Attending Note
-
Portions of this chart may have been created with voice recognition software.� Occasional wrong word or��sound alike� substitutions may have occurred due to the inherent limitations of voice recognition software.
Discharge Plan
Departure
Patient Disposition: Home (Routine Discharge)
Date of Disposition: 03/16/25
Time of Disposition: 13:07
Patient with high blood pressure during this ER visit?: Yes
Condition: Good
Discharge Problem:
Head injury, closed, Contusion of scalp, Laceration of scalp
Instructions: Head Injury in Adults (DC), Laceration Repair With Monika (DC), BLOOD PRESSURE
Prescriptions:
No Action
cholecalciferol (vitamin D3) 1,000 UNITS tablet
5,000 units PO DAILY
Benefiber
1 dose PO DAILY
Arthro Max Advanced
1 tab PO DAILY
docosahexaenoic acid-epa 1 CAP capsule
1 cap PO BID Qty: 0
High Absorption Cq10
200 mg PO DAILY
flaxseed-omega3,6,9-fatty acid 1 EACH capsule
1 cap PO DAILY
estradiol 1 APPLIC cream
1 applic VAG .2X WEEKLY
acetaminophen 325 MG tablet
650 mg PO Q4HPRN PRN (Reason: mild pain/LARIOS/temp> 100.4F) 0RF
Patient Comments:
for post op
amlodipine 10 MG tablet
5 mg PO DAILY
hydralazine 10 mg tablet
10 mg PO DAILY
modafinil 200 mg tablet
200 mg PO DAILY
coenzyme Q10 [CoQ-10] 100 mg Capsule
100 mg PO DAILY
mirabegron [Myrbetriq] 50 mg tablet extended release 24 hr
50 mg PO DAILY
vitamin B15-yikpm acid 1,000-400 mcg Lozenge
1 romulo SUBLINGUAL DAILY
Glucosamine Chondroitin 550-30-1 mg Capsule
750 cap PO TID
Hyperzinc A
1 dose PO DAILY
Immune Adapt
1 dose PO DAILY
[facility] [address]
1 dose PO DAILY
Macushield Areds
2 cap PO DAILY
Osteo Herb
1 dose PO DAILY
Super K
2,600 mcg PO DAILY
Tumeric Curcumin
1 tab PO BID
resveratrol
1 dose PO DAILY
Referrals:
Amada Owen MD [Family Provider, Internal Medicine]
Activity Restrictions/Additional Instructions:
You were seen in the emergency department for a fall
You were found to have a contusion and laceration to your scalp which was repaired with 2 sutures. The sutures will need to be removed in about 7 to 10 days. Your tetanus was updated during this visit.
Please follow-up closely with your primary care physician.
Return to the emergency department for any worsening of your symptoms, or any development of chest pain, difficulty breathing, abdominal pain with persistent vomiting and inability to tolerate food or liquid by mouth (concern for dehydration),
weakness, headache or confusion, fever greater than 100.4, or any additional symptoms that are concerning to you.
Thank you for choosing [facility].
Interventions
Interventions:
*Risk Screen - Suicide Last Done: 03/16/25 09:48
*General Assessment Last Done: 03/16/25 09:48
*Neglect/Abuse Screening Last Done: 03/16/25 09:48
*ED- Fall Risk Assessment Last Done: 03/16/25 11:55
*ED COVID-19 Vaccine History Last Done: 03/16/25 09:48
ED-Musculoskeletal Assessment Last Done: 03/16/25 11:44
ED- Neurological Assessment Last Done: 03/16/25 11:44
ED-Skin Assessment Last Done: 03/16/25 11:48
Discharge Date and Time
Print Language: LITHUANIAN
[2025-03-16] MEDS: ADACEL 0.5 ML IM (13:07)
== END 2025-03-16 14:00 | disposition home or self-care (01) ==
LOC: EMR 09:43
PROVIDERS: EMERGENCY PHYSICIAN Student in an Organized Health Care Education/Training Program; FAMILY PHYSICIAN Student in an Organized Health Care Education/Training Program
DX: S01.01XA Laceration without foreign body of scalp, initial encounter (principal); V48.4XXA Person boarding or alighting a car injured in noncollision transport accident, initial encounter; I12.9 Hypertensive chronic kidney disease with stage 1 through stage 4 chronic kidney disease, or unspecified chronic kidney disease; N18.9 Chronic kidney disease, unspecified; Z85.818 Personal history of malignant neoplasm of other sites of lip, oral cavity, and pharynx; Z23 Encounter for immunization
CPT/HCPCS: 12001; 90471; 99284; 70450; 72125; 90715

== ENCOUNTER → 2025-03-22 16:56 | Outpatient (REF) | payer MEDICARE, BC, SELFPAY | LOC: RAD 16:56 | PROVIDERS: ATTENDING PHYSICIAN Urology | DX: T85.193A Other mechanical complication of implanted electronic neurostimulator, generator, initial encounter (principal) | CPT/HCPCS: 72220 ==

== ENCOUNTER → 2025-03-25 18:23 | Outpatient (REF) | payer MEDICARE, BC, SELFPAY | LOC: WDC 18:23 | PROVIDERS: ATTENDING PHYSICIAN Student in an Organized Health Care Education/Training Program | DX: Z12.31 Encounter for screening mammogram for malignant neoplasm of breast (principal) | CPT/HCPCS: 77063; 77067 ==

== ENCOUNTER 2025-03-28 16:05 | Emergency (ER) | payer MEDICARE, BC, SELFPAY ==
[2025-03-28 16:11] VITALS: BP 110/60
--- NOTE | 2025-03-28 18:16 | ED.SKININJ ---
HPI-Injury
General
Chief Complaint: Skin Surface Trauma
Source: patient
Exam Limitations: none
Time Seen by Provider: 03/28/25 17:33
Nursing documentation reviewed up to this point in time: agreed with
History of Present Illness-Injury
Is this injury a work related problem?: No
Is pt an associate of [facility]?: No
Initial Injury comments:
Patient states she was attempting to open a box with a knife and accidentally cut her hand. Has lac to left hand at base of thumb. Injury occurred jsut [employer]. She reports she is UTD with rabies.
Past History
Past History
ED Past Medical History: HTN and Other (Chronic renal failure, compression fractures, parotid gland cancer, osteoporosis)
ED Past Surgical History: Bowel resection, Gynecological, Orthopedic, Tonsilectomy and Other
Social History
Tobacco: Non-smoker
Alcohol: None
Drug: None
Personal:
Living: alone
Employment: Not employed
Family History
Family History: Other
Review of Systems
Review of Systems
Allergies reviewed?: Yes
All Other Systems: ROS reviewed and negative except as documented in HPI and ROS
Constitutional: Reports no symptoms
Musculoskeletal: Reports no symptoms
Skin: Reports other (laceration left hand at base of thumb)
Neurological: Reports no symptoms
Psychiatric: Reports no symptoms
Skin Exam
Laceration
Left Hand:
Length in cm: 3
Orientation: vertical
Type of Laceration: simple
Any active bleeding?: no active bleeding
Distal skin color and temperature: normal-warm & good color
Normal distal neurovascular exam: Yes
Range of motion: full
Phy Exam
General Physical Exam
General Presentation: well appearing and no apparent distress
General age: appears stated age
General Skin: warm and dry
General Habitus: normal
General Mental: alert
Musculoskeletal Exam
Musculoskeletal Exam: full ROM and neuro vasc intact
Skin Exam
Skin Exam: normal color, warm/dry and no rash
Psychiatric Exam
Psychiatric Exam: normal mood/affect
Course
Vital Signs
Initial and Last Documented VS:
Initial Vital Signs
Temp Pulse Resp BP Pulse Ox
97.4 F 83 16 110/60 98
03/28/25 16:11 03/28/25 16:11 03/28/25 16:11 03/28/25 16:11 03/28/25 16:11
Last Documented Vital Signs
Temp Pulse Resp BP Pulse Ox
97.4 F 83 16 110/60 98
03/28/25 16:11 03/28/25 16:11 03/28/25 16:11 03/28/25 16:11 03/28/25 16:11
Procedures
Laceration Closure
Left Hand:
Status of Wound: clean
Description of Wound Edges: sharp
Preparation: cleaned with saline
Revision/Debridement: routine- no revision and irrigate-direct pressure
Wound exploration: explored to base- no FB and no tendon involvement
Type of Closure: Dermabond-skin glue
*Pulse Oximetry
SaO2: 98
Oxygen Mode of Delivery: Room air
Patient hypoxic: no
*Critical Care Note
Total Time (30-74mins, 75-104mins- exclusive of procedures): Not Applicable
Update Note
Update Note:
Patient to ED after cutting self with a knife. Full ROM, full sensation to left hand. No active bleeding. No evidenceof tendon injury. WOund closed with skin glue, steristrips applied. WIll discharge home and she will follow up tih PCP. given
instructions on s/s to return to ED and she isagreeable to plan.
ED Attending Note
-
Portions of this chart may have been created with voice recognition software.� Occasional wrong word or��sound alike� substitutions may have occurred due to the inherent limitations of voice recognition software.
Discharge Plan
Departure
Patient Disposition: Home (Routine Discharge)
Date of Disposition: 03/28/25
Time of Disposition: 18:15
Patient with high blood pressure during this ER visit?: No
Condition: Good
Covid-19: Not Applicable
Discharge Problem:
Hand laceration
Instructions: Laceration Repair With Glue (DC)
Prescriptions:
No Action
cholecalciferol (vitamin D3) 1,000 UNITS tablet
5,000 units PO DAILY
Benefiber
1 dose PO DAILY
Arthro Max Advanced
1 tab PO DAILY
docosahexaenoic acid-epa 1 CAP capsule
1 cap PO BID Qty: 0
High Absorption Cq10
200 mg PO DAILY
flaxseed-omega3,6,9-fatty acid 1 EACH capsule
1 cap PO DAILY
estradiol 1 APPLIC cream
1 applic VAG .2X WEEKLY
acetaminophen 325 MG tablet
650 mg PO Q4HPRN PRN (Reason: mild pain/LARIOS/temp> 100.4F) 0RF
Patient Comments:
for post op
amlodipine 10 MG tablet
5 mg PO DAILY
hydralazine 10 mg tablet
10 mg PO DAILY
modafinil 200 mg tablet
200 mg PO DAILY
coenzyme Q10 [CoQ-10] 100 mg Capsule
100 mg PO DAILY
mirabegron [Myrbetriq] 50 mg tablet extended release 24 hr
50 mg PO DAILY
vitamin U82-qbgnd acid 1,000-400 mcg Lozenge
1 romulo SUBLINGUAL DAILY
Glucosamine Chondroitin 550-30-1 mg Capsule
750 cap PO TID
Hyperzinc A
1 dose PO DAILY
Immune Adapt
1 dose PO DAILY
[address]
1 dose PO DAILY
Macushield Areds
2 cap PO DAILY
Osteo Herb
1 dose PO DAILY
Super K
2,600 mcg PO DAILY
Tumeric Curcumin
1 tab PO BID
resveratrol
1 dose PO DAILY
Activity Restrictions/Additional Instructions:
Follow up with your family doctor as needed.
Interventions
Interventions:
*Risk Screen - Suicide Last Done: 03/28/25 16:11
*General Assessment Last Done: 03/28/25 16:11
*Neglect/Abuse Screening Last Done: 03/28/25 16:11
*ED- Fall Risk Assessment Last Done: 03/28/25 16:11
*ED COVID-19 Vaccine History Last Done: 03/28/25 16:11
Discharge Date and Time
Print Language: BULGARIAN
== END 2025-03-28 18:55 | disposition home or self-care (01) ==
LOC: EMR 16:05
PROVIDERS: EMERGENCY PHYSICIAN Emergency Medicine; FAMILY PHYSICIAN Student in an Organized Health Care Education/Training Program
DX: S61.412A Laceration without foreign body of left hand, initial encounter (principal); W26.0XXA Contact with knife, initial encounter; I12.9 Hypertensive chronic kidney disease with stage 1 through stage 4 chronic kidney disease, or unspecified chronic kidney disease; N18.9 Chronic kidney disease, unspecified; Z85.818 Personal history of malignant neoplasm of other sites of lip, oral cavity, and pharynx; M81.0 Age-related osteoporosis without current pathological fracture
CPT/HCPCS: 99282; 12001

== ENCOUNTER → 2025-04-29 07:31 | Outpatient (REF) | payer MEDICARE, BC, SELFPAY | LOC: DHSLP 07:31 | PROVIDERS: ATTENDING PHYSICIAN Internal Medicine Critical Care Medicine; FAMILY PHYSICIAN Student in an Organized Health Care Education/Training Program | DX: G47.33 Obstructive sleep apnea (adult) (pediatric) (principal) | CPT/HCPCS: 95811 ==

== ENCOUNTER → 2025-06-07 13:58 | Outpatient (REF) | payer MEDICARE, BC, SELFPAY | LOC: HWRAD 13:58 | PROVIDERS: ATTENDING PHYSICIAN Student in an Organized Health Care Education/Training Program | DX: R10.31 Right lower quadrant pain (principal) | CPT/HCPCS: 76700 ==

== ENCOUNTER → 2025-06-15 17:05 | Outpatient (REF) | payer MEDICARE, BC, SELFPAY ==
[2025-06-15 17:36] LABS: Hematocrit 39.7 % (37.0-47.0); Hemoglobin 13.3 g/dL (12.0-16.0); Mean Corp Hgb Conc. 33.5 g/dL (33.0-37.0); Mean Corpuscular Volume 95.4 fL (81.0-99.0); Nucleated Red Blood Cells % 0 %; Platelet Count 258 10^3/uL (130-400); Red Cell Dist. Width 13.6 % (11.5-14.5)
[2025-06-15 17:52] LABS: ALT (SGPT) 32 U/L (0-35); AST (SGOT) 26 U/L (14-36); Albumin 4.5 g/dl (3.5-5.0); Alkaline Phosphatase 49 U/L (38-126); Blood Urea Nitrogen 43 mg/dl (7-17); Calcium 9.9 mg/dl (8.4-10.2); Carbon Dioxide 30 mmol/L (22-30); Chloride 102 mmol/L (98-107); Glucose 105 mg/dl (70-99); Potassium 4.5 mmol/L (3.5-5.1); Sodium 136 mmol/L (135-145); Total Protein 7.0 g/dl (6.3-8.2); eGFR 54.53
[2025-06-15 18:42] LABS: Vitamin B12 > 1000 pg/ml (239-931)
[2025-06-16 08:33] LABS: Glycohemoglobin (HgbA1c) 5.3 % (4.0-5.6)
== END ==
LOC: REG 17:05
PROVIDERS: ATTENDING PHYSICIAN Student in an Organized Health Care Education/Training Program
DX: R26.81 Unsteadiness on feet (principal); R29.898 Other symptoms and signs involving the musculoskeletal system; R10.31 Right lower quadrant pain; E87.1 Hypo-osmolality and hyponatremia
CPT/HCPCS: 36415; 80053; 82607; 83036; 84155; 84165; 84443; 85025

== ENCOUNTER → 2025-07-20 12:30 | Outpatient (REF) | payer MEDICARE, BC, SELFPAY ==
[2025-07-20 14:00] LABS: ALT (SGPT) 28 U/L (0-35); AST (SGOT) 25 U/L (14-36); Albumin 4.7 g/dl (3.5-5.0); Alkaline Phosphatase 43 U/L (38-126); Blood Urea Nitrogen 41 mg/dl (7-17); Calcium 9.9 mg/dl (8.4-10.2); Carbon Dioxide 31 mmol/L (22-30); Chloride 100 mmol/L (98-107); Glucose 92 mg/dl (70-99); Potassium 4.4 mmol/L (3.5-5.1); Sodium 135 mmol/L (135-145); Total Protein 7.2 g/dl (6.3-8.2); eGFR 54.53
== END ==
LOC: OLABPV 12:30
PROVIDERS: ATTENDING PHYSICIAN Internal Medicine Endocrinology, Diabetes & Metabolism
DX: M81.0 Age-related osteoporosis without current pathological fracture (principal)
CPT/HCPCS: 36415; 80053

== ENCOUNTER → 2025-08-04 10:33 | Outpatient (REF) | payer MEDICARE, BC, SELFPAY | LOC: PAVMRI 10:33 | PROVIDERS: ATTENDING PHYSICIAN Student in an Organized Health Care Education/Training Program | DX: R26.81 Unsteadiness on feet (principal); R29.898 Other symptoms and signs involving the musculoskeletal system; M54.50 Low back pain, unspecified; R15.9 Full incontinence of feces; R32 Unspecified urinary incontinence | CPT/HCPCS: 70553; 72148; A9575 ==

== ENCOUNTER → 2025-08-13 10:58 | Outpatient (REF) | payer MEDICARE, BC, SELFPAY ==
[2025-08-13 11:47] LABS: HDL Cholesterol 88 mg/dl; LDL Cholesterol, Calculated 108 mg/dl; Very Low Density Lipoprotein 10 mg/dl (0-30)
== END ==
LOC: OLABPV 10:58
PROVIDERS: ATTENDING PHYSICIAN Student in an Organized Health Care Education/Training Program
DX: I67.82 Cerebral ischemia (principal)
CPT/HCPCS: 36415; 80061